=== PATIENT | male | born 1965 | race Native Hawaiian/Other Pacific Islander ===

== ENCOUNTER 2016-12-07 12:22 | Outpatient (CLI) | payer OTHER ==
[~2016-12-07 12:22] MED LIST: ALLO100T22 PO; AMLO2.5T PO; CELLCEPT500 MG PO; CYCLOSPORINE25 M1 PO; LORCET 5-325 MG1 TAB PO; LYRICA100 MG PO; PREDNISONE2.5 MG PO; PRINIVIL10 MG PO; SIMV10TA PO
== END 2016-12-07 22:59 | disposition home or self-care (01) ==
LOC: LABW 12:22
PROVIDERS: Transplant Surgery
DX: Z94.0 Kidney transplant status (principal); Z79.899 Other long term (current) drug therapy; E11.9 Type 2 diabetes mellitus without complications; Z51.81 Encounter for therapeutic drug level monitoring; C61 Malignant neoplasm of prostate
CPT/HCPCS: 36415; 80061; 81000; 82607; 82728; 83036; 83540; 83550; 84154; 84403; 84443; 85651; 87088

== ENCOUNTER 2017-09-12 09:27 | Outpatient (CLI) | payer OTHER ==
[2017-09-12 10:02] LABS: PLATELET COUNT 281 K/uL (142-355)
[2017-09-12 10:40] LABS: POTASSIUM 4.2 mmol/L (3.6-5.2); SODIUM 139 mmol/L (136-145)
== END 2017-09-12 19:30 | disposition home or self-care (01) ==
LOC: LABW 09:27
PROVIDERS: Family Medicine
DX: I10 Essential (primary) hypertension (principal); I51.89 Other ill-defined heart diseases; E79.0 Hyperuricemia without signs of inflammatory arthritis and tophaceous disease; M54.5 Low back pain; R00.2 Palpitations; E55.9 Vitamin D deficiency, unspecified; R06.02 Shortness of breath; R60.0 Localized edema; N40.0 Benign prostatic hyperplasia without lower urinary tract symptoms
CPT/HCPCS: 36415; 80053; 80061; 81000; 82043; 82306; 82570; 83735; 83880; 84153; 84439; 84443; 84550; 85027

== ENCOUNTER 2017-09-14 14:39 | Outpatient (CLI) | payer OTHER | END 2017-09-14 15:40 | disposition home or self-care (01) | LOC: LABW 14:39 | DX: I10 Essential (primary) hypertension (principal); E11.9 Type 2 diabetes mellitus without complications | CPT/HCPCS: 36415; 83036 ==

== ENCOUNTER 2017-11-27 15:09 | Emergency (ER) | payer OTHER ==
[~2017-11-27] VITALS: Ht 185.4 cm; Wt 129.3 kg
[2017-11-27 15:30] VITALS: TEMP 98.3
[2017-11-27 16:37] LABS: PLATELET COUNT 237 K/uL (142-355)
[2017-11-27 16:39] LABS: POTASSIUM 4.6 mmol/L (3.6-5.2); SODIUM 137 mmol/L (136-145)
[2017-11-27 17:54] VITALS: BP 185/80
== END 2017-11-27 18:41 | disposition home or self-care (01) ==
LOC: ED 15:09
PROVIDERS: Specialist
DX: I48.91 Unspecified atrial fibrillation (principal); E05.80 Other thyrotoxicosis without thyrotoxic crisis or storm
CPT/HCPCS: 36415; 80053; 83735; 83880; 84443; 84484; 85027; 93005; 96365; 99284; J3490

== ENCOUNTER 2017-12-26 10:12 | Outpatient (CLI) | payer OTHER | END 2017-12-26 20:24 | disposition home or self-care (01) | LOC: LABW 10:12 | DX: Z94.0 Kidney transplant status (principal); Z94.83 Pancreas transplant status; F41.8 Other specified anxiety disorders; I10 Essential (primary) hypertension | CPT/HCPCS: 36415; 82565 ==

== ENCOUNTER 2017-12-26 11:03 | Outpatient (CLI) | payer OTHER | END 2017-12-26 20:25 | disposition home or self-care (01) | LOC: RAD 11:03 | DX: M47.896 Other spondylosis, lumbar region (principal) ==